=== PATIENT | female | born 1960 | race Caucasian/White ===

== ENCOUNTER 2018-12-08 11:55 | Outpatient (CLI) | payer MEDICARE, MEDICAID ==
--- NOTE | 2018-12-08 13:12 | MRI ---
MRI Cervical Spine WO Con History: [M 54.12 cervical radicular pain] Comparison: MRI cervical spine 2017 Findings: Cerebral tonsils terminate at level of the foramen magnum. No marrow infiltrative process. ACDF hardware C4-C7. Paraspinal musculature is symmetric. Levels are as follows: C2/C3: Small central posterior disc osteophyte complex. Mild effacement of ventral CSF space. Spinal canal measures approximately 8 mm. Mild right uncinate process hypertrophy with a right mild neural foraminal narrowing. C3/C4: Moderate degenerative disc space height loss. Circumferential disc osteophyte complex. Mild fa cet arthropathy. There is abutment of the cord. Spinal canal measures approximately 6 mm. Mild ligamentum flavum hypertrophy. There is moderate to severe right and moderate left neural foraminal n arrowing. C4/C5: Prior discectomy change. Moderate uncinate process hypertrophy. Mild facet arthropathy. Modera te to severe right and moderate left neural foraminal narrowing. C5/C6: Prior discectomy change. Moderate to severe right and moderate left osteoporosis. She with mod erate to severe right and moderate left neural foraminal narrowing. No spinal canal narrowing. C6/C7: Prior discectomy change. Moderate to severe uncinate process hypertrophy. There is effacement of ventral CSF space. Spinal canal measures 9 mm. Severe right and moderate to severe left neural foraminal narrowing. C7/T1: Mild degenerative disc space height loss. Large anterior bridging osteophyte. Moderate osteopo rosis approach the. Severe right facet arthropathy. Moderate left and mild right neural foraminal narrowing. Impression: Multilevel neural foraminal and spinal canal narrowing as described.
--- NOTE | 2018-12-08 13:26 | MRI ---
MRI Lumbar Spine WO Con History: [M 54.16 lumbar radicular pain] Comparison: MRI lumbar spine 2017. Radiograph 2014 Findings: The aortic contour is nonaneurysmal. No retroperitoneal adenopathy. No hydronephrosis. Unilateral left posterior spinal fusion hardware at L4/L5. Conus medullaris terminates near the superior endplate of L1. Levels are as follows: L1/L2: Normal disc. No neural foraminal or spinal canal narrowing. Mild facet arthropathy. L2/L3: Normal disc. Moderate facet arthrosis. No neural foraminal or spinal canal narrowing. L4/L5: Small bilateral subforaminal posterior disc osteophyte complexes. Severe facet arthrosis. Mild bilateral neural foraminal narrowing. L4/L5: Left unilateral discectomy change. Left foraminal and extraforaminal disc osteophyte complex c auses moderate left neural foraminal narrowing. Small right subforaminal posterior disc osteophyte complex causes mild right neural foraminal narrowing. L5/S1: Normal disc. No neural foraminal or spinal canal narrowing. Impression: 1. Low-grade spondylosis as described. 2. 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 This can be a source of patient's symptomatology. This does cause abutment of exiting nerve roots.
== END 2018-12-08 11:56 | disposition home or self-care (01) ==
LOC: MRI 11:55
PROVIDERS: ATTEND Nurse Practitioner Family
DX: M47.26 Other spondylosis with radiculopathy, lumbar region (principal); M54.12 Radiculopathy, cervical region; M47.814 Spondylosis without myelopathy or radiculopathy, thoracic region; M48.02 Spinal stenosis, cervical region; M48.03 Spinal stenosis, cervicothoracic region; M24.28 Disorder of ligament, vertebrae
CPT/HCPCS: 72141; 72148

== ENCOUNTER 2019-02-09 15:26 | Outpatient (CLI) | payer MEDICARE, MEDICAID ==
--- NOTE | 2019-02-09 16:18 | RAD ---
CERVICAL SPINE 3 VIEWS: HISTORY: Cervical spondylosis, neck pain. COMPARISON: 10/27/2013. FINDINGS: Anterior cervical fusion changes at C4, C5, C6, and C7. One of the C7 screws has backed up somewhat, although it is stable. Disk-osteophytosis and facet arthrosis. No prevertebral soft tissue swellin g. IMPRESSION: Stable postoperative changes. No new process. POS: [facility]
--- NOTE | 2019-02-09 17:28 | RAD ---
2 VIEWS LUMBAR SPINE: Date: 02/09/19 HISTORY: Pain. COMPARISON: None. FINDINGS: Five lumbar-type vertebral bodies. Unilateral left-sided transpedicular screw at L4-L5 without periha rdware lucency. Disc prosthesis at L4-L5 level. No fracture. No significant spondylolisthesis. There is pseudoarthrosis of the left L5 ala with the sacrum. IMPRESSION: Uncomplicated lumbar fusion at L4-L5. POS: [facility]
== END 2019-02-09 15:27 | disposition home or self-care (01) ==
LOC: TBSIIMAG 15:26
PROVIDERS: ATTEND Neurological Surgery
DX: M47.816 Spondylosis without myelopathy or radiculopathy, lumbar region (principal); M47.812 Spondylosis without myelopathy or radiculopathy, cervical region; Z98.1 Arthrodesis status; Z98.890 Other specified postprocedural states
CPT/HCPCS: 72040; 72100

== ENCOUNTER 2019-08-13 07:26 | Day surgery (SDC) | payer MEDICARE, MEDICAID ==
[2019-07-19 11:35] VITALS: BMI 28.3
[2019-08-13] MEDS ORDERED: Iopamidol-M 300 61% 15 ML VIAL ONE (09:31)
--- NOTE | 2019-08-13 09:42 | RAD ---
Exam: CERVICAL AND LUMBAR MYELOGRAM: HISTORY: Cervical and lumbar radiculopathy. Exposure: 1 minute. 179.4 mGy/M2. FINDINGS: 2 views cervical spine: Anterior fusion plate with transvertebral body screw at C4, C5, C6 and C7. Candido th screws at C7 appear to have backed out of the vertebral body. There is a C4-C5, C5-C6 and C6-C7 disc prosthesis. No prevertebral soft tissue swelling 2 views lumbar spine: Unilateral left-sided transpedicular screw at L4-L5. No perihardware lucency. T he left-sided L4 screw appears to make contact with the superior endplate of L4 and may minimally enter the disc space. Disc prosthesis at L4-L5. No significant spondylolisthesis or spondylolysis. Successful lumbar myelogram. A total of 9 mL of Isovue-M 370 contrast was administered intrathecally at the L1-L2 level. No immediate or postprocedure complications. Consent obtained to perform a lumbar puncture for cervical and lumbar myelogram. The L1-L2 level was deemed appropriate. Skin was prepped and draped in sterile fashion. 1% lidocaine, buffered with sodium bicarbonate was used for local anesthesia. Under fluoroscopic guidance, a 22-gauge spinal need le was advanced into the CSF space. Prompt flow of clear CSF to the hub of the needle. Via a short tubing catheter, a total of 9 mL of Isovue-M 370 contrast was administered intrathecally. Patient aries erated the procedure well. No immediate or postprocedure complications. IMPRESSION: Successful lumbar puncture for cervical and lumbar myelogram. Transcribed Date/Time: 08/13/2019 9:55 AM
--- NOTE | 2019-08-13 10:07 | CT ---
POST MYELOGRAM CERVICAL SPINE CT: HISTORY: Cervical radiculopathy. Status post cervical fusion. COMPARISON: 02/10/2014. TECHNIQUE: Cervical spine CT is performed in the axial length. Three-dimensional reformatted images are submitte d. FINDINGS: Anterior fusion plate with transvertebral body screw at C4, C5, C6 and C7. Both screws at C7 have sli ghtly backed out from the plate and vertebral body, suggesting loosening. Disc prosthesis at C4-C5, C5-C6 and C6-C7. Cervical spine vertebral body height is maintained. There is no fracture. No prevertebral soft tissue swelling. Visualized soft tissue neck structures, upper mediastinum are unremarkable. Dependent atelectatic franky nges in the visualized lung apices. Appropriate alignment of lateral masses of C1 and C2. Appropriate alignment of the facets. Mild facet hypertrophy/arthropathy on the right at C2-C3. Mild to moderate facet hypertrophy/arthropathy on the left at C4-C5. C2-C3: Central disc herniation. Mild central canal stenosis. Mild to moderate right foraminal narrowi ng due to uncovertebral hypertrophy. Patent left neural foramen. C3-C4: Broad-based disc-osteophyte complex does cause mass effect upon the thecal sac. Mild central c anal stenosis. Mild to moderate bilateral foramina due to uncovertebral hypertrophy. C4-C5:Disc prosthesis. No significant central canal stenosis. Mild to moderate right and mild left fo raminal due to uncovertebral hypertrophy. C5-C6: Disc prosthesis. Central/right paracentral osteophyte ridge. Mild central canal stenosis. Mode rate right and [id number] left foraminal narrowing predominantly due to uncovertebral hypertrophy. C6-C7:Disc prosthesis. Osteophyte ridge causes mass effect upon the thecal sac. Mild central canal st enosis. Moderate bilateral neural foraminal narrowing due to uncovertebral hypertrophy. C7-T1: No significant central canal stenosis or neural foraminal narrowing. IMPRESSION: 1. Loosening of bilateral transvertebral body screws at C7. Screw has backed out and is not flush wit h the plate. 2. No fractures. 3. Cervical fusion as described above. 4. Degenerative changes with varying degrees of central canal stenosis and neural foraminal narrowing as described above. Transcribed Date/Time: 08/13/2019 10:23 AM
[2019-08-13] MEDS ORDERED: Acetaminophen 500 MG TAB ONE (10:12)
--- NOTE | 2019-08-13 11:00 | CT ---
POSTMYELOGRAM LUMBAR SPINE CT: HISTORY: Lumbar fusion. Lumbar radiculopathy. COMPARISON: 02/10/2014. TECHNIQUE: Postmyelogram lumbar spine CT is performed in the axial plane. Sagittal and coronal reformatted image s are submitted for interpretation. FINDINGS: There are bilateral nonobstructing calculi. Bilaterally no evidence of obstructive uropathy. Visualiz ed alimentary canal and solid organs are grossly unremarkable. Visualized urinary bladder, uterus and adnexal structures are also grossly unremarkable. Presacral fat is maintained. Sacral alae are preserved. Intact bony pelvis and sacrum. Unilateral left-sided transpedicular screw at L4 4 and L5. L4-L5 disc prosthesis. The left L4 transpe dicular screw is oriented in a slightly cephalad direction and does traverse the superior endplate on the left side. The distal tip appears to terminate in the inferior aspect of the L3-L4 disc space. Coronal images demonstrate partial sacralization of L5 with pseudoarthrosis of the left and right ala e with the sacrum. Conus medullaris terminates at the T12-L1 disc space. T12-L1: No significant central canal stenosis or significant neural foraminal narrowing. L1-L2: No significant central canal stenosis or significant neural foraminal narrowing. L2-L3: No significant central canal stenosis or significant neural foraminal narrowing. Small focus o f intrathecal air due to recent myelogram. L3-L4: Broad-based disc bulge minimally flattens the ventral thecal sac. There is bilateral facet hyp ertrophy. There is no significant central canal stenosis.. Bilaterally, neural foramina are patent. L4-L5: Disc prosthesis. No significant central canal stenosis. Mild right foraminal narrowing. Left n eural foramen is patent. L5-S1: No significant central canal stenosis. Neural foramina are patent. IMPRESSION: 1. Lumbar fusion as described above. The left transpedicular screw does terminate along the inferior left L3-L4 disc space. 2. Degenerative changes of the lumbar spine as described above. Transcribed Date/Time: 08/13/2019 11:50 AM
== END 2019-08-13 10:20 | disposition home or self-care (01) ==
LOC: RAD 07:26
PROVIDERS: ATTEND Neurological Surgery
PROC: B01B1ZZ Fluoroscopy of Spinal Cord using Low Osmolar Contrast (ICD-10-PCS; principal; 2019-08-13)
DX: M50.11 Cervical disc disorder with radiculopathy, high cervical region (principal); M48.02 Spinal stenosis, cervical region; M48.04 Spinal stenosis, thoracic region; M79.7 Fibromyalgia; J45.909 Unspecified asthma, uncomplicated; E78.5 Hyperlipidemia, unspecified; I10 Essential (primary) hypertension; K21.9 Gastro-esophageal reflux disease without esophagitis; Z87.891 Personal history of nicotine dependence; Z79.899 Other long term (current) drug therapy; Z98.1 Arthrodesis status
CPT/HCPCS: 62305; 72126; 72132; Q9967

== ENCOUNTER 2025-02-17 21:25 | Inpatient (IN) | payer OTHER, MEDICAID ==
[2025-02-17] MEDS ORDERED: dilTIAZem 25 MG/5 ML VIAL ONE ×3 (21:52→22:01)
[2025-02-17] MEDS ORDERED: Ondansetron PF 4 MG/2 ML Vial ONE (22:08)
[2025-02-17 22:22] LABS: Hematocrit 42.0 % (36.0-47.0); Hemoglobin 13.9 g/dL (12.0-16.0); Mean Corpuscular Hemoglobin 28.8 pg (27.0-31.0); Mean Corpuscular Volume 87.0 fL (78.0-98.0); Platelet Count 432 10x3/uL (130-400); Red Blood Cell (RBC) Count 4.83 mill/uL (4.20-5.40); White Blood Cell (WBC) Count 12.51 10x3/uL (4.8-10.8)
[2025-02-17 22:45] LABS: Platelet Adequacy Comment Platelets Increased; RBC Morphology Within Normal Limits; Smudge Cells 16.8 %
[2025-02-17 23:02] LABS: Bacteria/HPF None Seen HPF (None Seen); CAUTI Indications for Culture Pelvic or flank pain; Glucose, Urine (Dipstick) Normal (Negative); Leukocyte Negative Leu/uL (Negative); Protein, Urine (Dipstick) Negative (Neg-Trace); RBC/HPF 0-3 HPF (0-3); Specific Gravity, Urine 1.004 (1.002-1.036); WBC/HPF 0-3 HPF (0-3)
[2025-02-17 23:06] LABS: Urine Culture Reflex No No
[2025-02-17 23:13] LABS: ALT (SGPT) 18 U/L (Less than 34); AST (SGOT) 31 U/L (11-34); Albumin 3.8 g/dL (3.1-4.5); Alkaline Phosphatase 123 U/L (40-110); Anion Gap 16 mmol/L (10-20); BUN (Urea Nitrogen) 9 mg/dL (9.8-20.1); Bilirubin, Total 0.3 mg/dL (0.3-1.2); CK (CPK) 124 U/L (29-168); Calc. Creatinine Clearance 0 mL/min (70-130); Calcium 7.8 mg/dL (7.8-10.44); Carbon Dioxide 16 mmol/L (23-31); Chloride 114 mmol/L (98-107); Globulin 3.6 g/dL (2.4-3.5); Glucose 194 mg/dL (80-115); Magnesium 1.8 mg/dL (1.6-2.6); Potassium 2.9 mmol/L (3.5-5.1); Sodium 143 mmol/L (136-145)
[2025-02-17 23:20] LABS: Cocaine Metabolite Screen Negative (Negative); THC/Cannabinoid Screen Negative (Negative); Tricyclic Screen Negative (Negative)
[2025-02-18] MEDS ORDERED: Electrolyte Replacement Protocol 1 EACH FS PRN (01:27)
[2025-02-18] MEDS ORDERED: POTASSIUM CHLORIDE IVPB SCH (01:30)
[2025-02-18] MEDS ORDERED: Sodium Bicarb 50 MEQ/50 ML Abboject 8.4% SYRINGE ONE (01:45)
[2025-02-18 01:58] LABS: Actual Bicarbonate (HCO3a) 18.4 mEq/L (22-28); Analyzer IN Cardio ER; Base Excess (BEa) -5.6 mEq/L (-2.0 to +3.0); CO2 Tension 31.6 mmHg (35.0-45.0); Calcium, Ionized (arterial) 1.13 mmol/L (1.12-1.30); Hematocrit-ABG 38 % (36.0-47.0); Hemoglobin (Hb) 12.8 g/dL (12.0-16.0); O2 Tension (PaO2), arterial 114.4 mmHg (> 80.0); Potassium - ABG Lab 3.38 mmol/L (3.70-5.30); pH, Arterial 7.384 (7.35-7.45)
[2025-02-18] MEDS ORDERED: Vancomycin 1 GM/200 ML (FROZEN) BAG ONE (02:03)
[2025-02-18] MEDS ORDERED: Potassium Chloride 20 MEQ (100 mL) BAG ONE (02:03)
[2025-02-18] MEDS ORDERED: Enoxaparin 80 MG (0.8 mL) SYRINGE ONE (02:18)
[2025-02-18 04:01] VITALS: BMI 32.7
[2025-02-18] MEDS: Magnesium 2 GM/50 ML(in water) 2 GM in Premix 1 BAG IVPB SCH (04:19)
[2025-02-18] MEDS: Acetaminophen 325 MG TAB PO PRN (04:21)
[2025-02-18 04:56] LABS: #Basophils Less than 0.03 10x3/uL (0.0-0.2); #Eosinophils Less than 0.03 10x3/uL (0.0-0.7); #Monocytes 0.06 10x3/uL (0.11-0.59); #Neutrophils 10.20 10x3/uL (1.40-6.50); %Basophils 0.2 % (0.0-1.0); %Eosinophils 0.0 % (0.0-10.0); %Lymphocytes 6.4 % (21.0-51.0); %Monocytes 0.5 % (0.0-10.0); %Neutrophils 92.5 % (42.0-75.0); Hematocrit 35.7 % (36.0-47.0); Hemoglobin 11.6 g/dL (12.0-16.0); Mean Corpuscular Hemoglobin 28.7 pg (27.0-31.0); Mean Corpuscular Volume 88.4 fL (78.0-98.0); Platelet Count 346 10x3/uL (130-400); Red Blood Cell (RBC) Count 4.04 mill/uL (4.20-5.40); White Blood Cell (WBC) Count 11.02 10x3/uL (4.8-10.8)
[2025-02-18 05:08] LABS: ALT (SGPT) 16 U/L (Less than 34); AST (SGOT) 29 U/L (11-34); Albumin 3.9 g/dL (3.1-4.5); Alkaline Phosphatase 107 U/L (40-110); Anion Gap 20 mmol/L (10-20); BUN (Urea Nitrogen) 10 mg/dL (9.8-20.1); Bilirubin, Total 0.4 mg/dL (0.3-1.2); Calc. Creatinine Clearance 88 mL/min (70-130); Calcium 8.4 mg/dL (7.8-10.44); Carbon Dioxide 17 mmol/L (23-31); Chloride 111 mmol/L (98-107); Globulin 3.6 g/dL (2.4-3.5); Glucose 178 mg/dL (80-115); Potassium 3.4 mmol/L (3.5-5.1); Sodium 145 mmol/L (136-145)
[2025-02-18] MEDS: Potassium Chloride 20 MEQ in Premix 1 BAG IVPB SCH (07:08)
[2025-02-18 09:24] LABS: Free T4 (Free Thyroxine) 0.75 ng/dL (0.70-1.48); Thyroid Stimulating Hormone 2.7371 uIU/mL (0.35-4.94)
[2025-02-18] MEDS: Sertraline 25 MG TAB PO SCH (09:48)
[2025-02-18] MEDS: Apixaban 5 MG TAB PO SCH (09:48)
[2025-02-18] MEDS: Metoprolol Succinate XL 25 MG ER.TAB PO SCH (09:48)
[2025-02-18] MEDS ORDERED: Iopamidol 370 76% 100 ML VIAL ONE (12:08)
[2025-02-18] MEDS ORDERED: Enoxaparin 80 MG (0.8 mL) SYRINGE SC SCH (14:00)
[2025-02-18 14:43] LABS: Potassium 4.5 mmol/L (3.5-5.1)
[2025-02-18] MEDS: Digoxin 0.5 MG/2 ML AMP SLOW IVP SCH (19:37)
[2025-02-18] MEDS: Gabapentin 300 MG CAP PO SCH (20:26)
[2025-02-19] MEDS ORDERED: GUAIFENESIN SF SOLN 200 MG/10 ML UDCUP PO PRN (03:50)
[2025-02-19] MEDS: Benzonatate 100 MG CAP PO PRN (04:05)
[2025-02-19 12:40] VITALS: BP 171/82; TEMP 97.1
[2025-02-20] MEDS ORDERED: Digoxin 0.125 MG TAB PO SCH (09:00)
== END 2025-02-19 14:49 | disposition home or self-care (01) | DRG 308 ==
LOC: ERS 21:25 → IMCU/EMU 02-18 02:10 → 2NO 02-18 18:39
PROVIDERS: ADMIT Internal Medicine; ATTEND Internal Medicine
PROC: 3E03329 Introduction of Other Anti-infective into Peripheral Vein, Percutaneous Approach (ICD-10-PCS; principal; 2025-02-18)
PROC: 4A033R1 Measurement of Arterial Saturation, Peripheral, Percutaneous Approach (ICD-10-PCS; 2025-02-18)
PROC: 5A2204Z Restoration of Cardiac Rhythm, Single (ICD-10-PCS; 2025-02-18)
DX: I48.91 Unspecified atrial fibrillation (principal); J96.01 Acute respiratory failure with hypoxia; E87.20 Acidosis, unspecified; I47.10 Supraventricular tachycardia, unspecified; E03.9 Hypothyroidism, unspecified; F32.A Depression, unspecified; D72.829 Elevated white blood cell count, unspecified; E87.6 Hypokalemia; D75.839 Thrombocytosis, unspecified; K21.9 Gastro-esophageal reflux disease without esophagitis; F41.9 Anxiety disorder, unspecified; Z86.73 Personal history of transient ischemic attack (TIA), and cerebral infarction without residual deficits; Z90.49 Acquired absence of other specified parts of digestive tract; Z98.890 Other specified postprocedural states; Z95.0 Presence of cardiac pacemaker; Z82.49 Family history of ischemic heart disease and other diseases of the circulatory system; Z82.3 Family history of stroke; Z79.899 Other long term (current) drug therapy; M54.9 Dorsalgia, unspecified; G89.29 Other chronic pain; E78.00 Pure hypercholesterolemia, unspecified; I10 Essential (primary) hypertension; J45.909 Unspecified asthma, uncomplicated; Z87.891 Personal history of nicotine dependence; Z79.01 Long term (current) use of anticoagulants; Z79.890 Hormone replacement therapy
CPT/HCPCS: 36415; 36416; 71045; 71275; 80053; 80306; 81001; 82550; 82805; 83605; 83735; 83880; 84439; 84443; 84484; 85025; 85379; 87040; 93005; 93306; 96365; 96366; 96368; 96372; 96374; 96375; J0282; J0692; J1160; J1650; J2405; J3010; J3373; J3475; J3480; J7070; J7120; Q9967